=== PATIENT | male | born 1960 | race Caucasian/White ===

== ENCOUNTER 2017-07-22 10:39 | Outpatient (CLI) | payer OTHER ==
[~2017-07-22 10:39] MED LIST: ASA81 MG; CATAFLAM50 MG PO; CELEBREX200MG; CIALIS5 MG; LIPITOR20 MG
== END 2017-07-22 15:00 | disposition home or self-care (01) ==
LOC: MRI 10:39
DX: M54.2 Cervicalgia (principal)
CPT/HCPCS: 72141

== ENCOUNTER 2017-07-22 10:44 | Outpatient (CLI) | payer OTHER | END 2017-07-22 15:00 | disposition home or self-care (01) | LOC: RAD 10:44 | DX: M54.2 Cervicalgia (principal) ==

== ENCOUNTER 2017-10-15 10:06 | Outpatient (CLI) | payer OTHER | END 2017-10-15 10:13 | disposition home or self-care (01) | LOC: RAD 10:06 | DX: Z01.818 Encounter for other preprocedural examination (principal) ==

== ENCOUNTER 2018-08-25 10:27 | Outpatient (CLI) | payer OTHER ==
[~2018-08-25] VITALS: Ht 180.3 cm; Wt 83.9 kg
== END 2018-08-25 10:40 | disposition home or self-care (01) ==
LOC: OFIC 805 10:27
DX: H61.23 Impacted cerumen, bilateral (principal); H91.8X3 Other specified hearing loss, bilateral

== ENCOUNTER 2018-08-29 11:47 | Outpatient (CLI) | payer OTHER ==
[~2018-08-29] VITALS: Ht 152.4 cm; Wt 83.9 kg
== END 2018-08-29 12:05 | disposition home or self-care (01) ==
LOC: OFIC 805 11:47
DX: H91.8X3 Other specified hearing loss, bilateral (principal); H61.23 Impacted cerumen, bilateral; J38.2 Nodules of vocal cords

== ENCOUNTER 2018-10-14 15:01 | Outpatient (CLI) | payer OTHER | END 2018-10-14 15:11 | disposition home or self-care (01) | LOC: RAD 15:01 | DX: Z01.810 Encounter for preprocedural cardiovascular examination (principal) ==

== ENCOUNTER 2019-04-11 09:21 | Day surgery (SDC) | payer OTHER | END 2019-04-11 12:50 | disposition home or self-care (01) | LOC: AMB-ENDOS | DX: R19.4 Change in bowel habit (principal); K64.8 Other hemorrhoids; Z12.11 Encounter for screening for malignant neoplasm of colon ==

== ENCOUNTER 2019-06-19 08:38 | Outpatient (CLI) | payer OTHER | END 2019-06-19 15:34 | disposition home or self-care (01) | LOC: MRI 08:38 | DX: M54.2 Cervicalgia (principal) | CPT/HCPCS: 72141 ==

== ENCOUNTER 2020-04-09 08:00 | Outpatient (CLI) | payer OTHER | END 2020-04-09 15:00 | disposition home or self-care (01) | LOC: PPH VACUNA 08:00 | DX: Z23 Encounter for immunization (principal) ==

== ENCOUNTER 2021-05-01 15:27 | Outpatient (CLI) | payer OTHER | END 2021-05-01 15:29 | disposition home or self-care (01) | LOC: PPH VACUNA 15:27 | PROVIDERS: ATTEND Emergency Medicine Pediatric Emergency Medicine | DX: Z23 Encounter for immunization (principal) ==

== ENCOUNTER 2021-05-09 08:11 | Outpatient (CLI) | payer OTHER | END 2021-05-09 08:17 | disposition home or self-care (01) | LOC: SONOGRAMA 08:11 | DX: N28.89 Other specified disorders of kidney and ureter (principal); N40.1 Benign prostatic hyperplasia with lower urinary tract symptoms ==

== ENCOUNTER 2022-12-02 07:24 | Outpatient (CLI) | payer OTHER | END 2022-12-02 14:31 | disposition home or self-care (01) | LOC: LAB 07:24 | DX: R97.20 Elevated prostate specific antigen [PSA] (principal); Z20.2 Contact with and (suspected) exposure to infections with a predominantly sexual mode of transmission; R53.83 Other fatigue; R79.89 Other specified abnormal findings of blood chemistry; Z87.09 Personal history of other diseases of the respiratory system ==

== ENCOUNTER 2023-01-06 08:15 | Outpatient (CLI) | payer OTHER | END 2023-01-06 08:16 | disposition home or self-care (01) | LOC: LAB 08:15 | DX: N40.1 Benign prostatic hyperplasia with lower urinary tract symptoms (principal); N52.9 Male erectile dysfunction, unspecified; E53.9 Vitamin B deficiency, unspecified; E78.5 Hyperlipidemia, unspecified ==

== ENCOUNTER 2023-03-03 08:10 | Outpatient (CLI) | payer OTHER | END 2023-03-03 08:11 | disposition home or self-care (01) | LOC: LAB 08:10 | DX: N40.1 Benign prostatic hyperplasia with lower urinary tract symptoms (principal); N52.9 Male erectile dysfunction, unspecified; D64.9 Anemia, unspecified ==

== ENCOUNTER 2024-01-24 08:44 | Outpatient (CLI) | payer OTHER ==
[~2024-01-24 08:44] MED LIST changes: +DICLOFENAC POTA50 MG PO
== END 2024-01-24 08:56 | disposition home or self-care (01) ==
LOC: MRI 08:44
PROVIDERS: ATTEND Physical Medicine & Rehabilitation
DX: M25.521 Pain in right elbow (principal)
CPT/HCPCS: 73221

== ENCOUNTER 2024-05-04 08:10 | Day surgery (SDC) | payer OTHER ==
[2024-05-02 09:46] LABS: HEMATOCRIT 40.4 % (39.0-48.0); HEMOGLOBIN 13.7 g/dL (13-16.00); MEAN CELL VOLUME 90.6 fL (80.0-100.00); MEAN CORPUSCULAR HEMOGLOBIN 30.8 pg (27.00-32.0); PLATELET COUNT 259 K/uL (150-450); RED BLOOD COUNT 4.45 M/uL (4.00-6.00); RED CELL DISTRIBUTION WIDTH 13.2 % (11.5-14.5)
[2024-05-02 09:49] LABS: PH,URINE 6.5 (5.0-8.0); URINE APPEARANCE Clear; URINE BILIRRUBIN Negative (NEGATIVE); URINE BLOOD Negative; URINE COLOR Yellow; URINE GLUCOSE Negative (NEGATIVE); URINE KETONE 15 (NEGATIVE); URINE LEUKOCYTE Negative; URINE NITRATE Negative; URINE PROTEIN Negative (NEGATIVE); URINE UROBILINOGEN 0.2 E.U./dl
[2024-05-02 09:53] LABS: URINE WBC 1.8 uL (0.0-23.2)
[2024-05-02 10:01] LABS: URINE EPITHELIAL CELLS 0.1 uL (0.0-38.8); URINE RBC 1.6 uL (0.0-20.8)
[2024-05-02 10:10] LABS: INR 0.98; PARTIAL THROMBOPLASTIN TIME 27.5 SECONDS (22.0-34.0); PROTHROMBIN TIME 10.7 SECONDS (9.0-11.5)
[2024-05-02 10:28] LABS: ALBUMIN 3.6 gm/dL (3.4-5.0); BILIRUBIN TOTAL 0.74 mg/dL (0.3-1.2); CALCIUM 8.9 mg/dL (8.5-10.1); CREATININE SERUM 0.84 mg/dL (0.70-1.30); GFR 91.99; GLOBULINA 3.3 G/DL (2.4-3.5); POTASSIUM 4.74 mEq/L (3.5-5.1); TOTAL PROTEIN 6.9 gm/dL (6.4-8.2)
[2024-05-04] MEDS ORDERED: MORPHINE SULFATE 4 MG/ML VIAL IV ONE ×2 (13:10→14:55)
== END 2024-05-04 16:15 | disposition home or self-care (01) ==
LOC: CIR.AMB 08:10
PROVIDERS: ATTEND Orthopaedic Surgery
DX: M24.821 Other specific joint derangements of right elbow, not elsewhere classified (principal); M67.931 Unspecified disorder of synovium and tendon, right forearm; M17.11 Unilateral primary osteoarthritis, right knee

== ENCOUNTER → 2025-02-09 06:36 | Outpatient (CLI) | payer OTHER ==
[2025-02-09 07:18] LABS: BASO % 1.2 % (0.1-1.2); EOS # 0.07 (0.04-0.54); EOS % 1.6 % (0.7-7.0); LYMPH # 1.95 (1.18-3.74); LYMPH % 45.5 % (19.3-53.1); MEAN PLATELET VOLUME 10.00 fl (9.4-12.4); MONO # 0.39 (0.24-0.82); MONO % 9.1 % (4.7-12.5); NEUT # 1.82 (1.56-6.13); NEUT % 42.4 % (34.0-71.1); RED CELL DISTRIBUTION WIDTH 12.3 % (11.6-14.4)
[2025-02-09 07:21] LABS: URINE APPEARANCE Clear; URINE BILIRRUBIN Negative (NEGATIVE); URINE BLOOD Negative; URINE COLOR Yellow; URINE GLUCOSE Negative (NEGATIVE); URINE KETONE Negative (NEGATIVE); URINE LEUKOCYTE Negative; URINE NITRATE Negative; URINE PROTEIN Negative (NEGATIVE); URINE UROBILINOGEN 0.2 E.U./dl
[2025-02-09 07:25] LABS: URINE WBC 1.8 uL (0.0-23.2)
[2025-02-09 07:28] LABS: URINE BACTERIA 3.5 uL (0.0-1933); URINE CAST 0.14 uL (0.0-1.40); URINE EPITHELIAL CELLS 0.3 uL (0.0-38.8); URINE RBC 1.4 uL (0.0-20.8)
[2025-02-09 08:23] LABS: ALT/SGPT 21.0 U/L (12-78); AST/SGOT 13.0 U/L (15-37); BILIRUBIN TOTAL 0.54 mg/dL (0.3-1.2); BUN CREA RATIO 20.0 (7.0-25.0); CHOL HDL RATIO 3.4 (0-5.0); CREATININE SERUM 0.88 mg/dL (0.70-1.30); GFR 86.91; GLOBULINA 3.0 G/DL (2.4-3.5); GLUCOSE FASTING 89.0 mg/dL (65-100); HDL 55.0 mg/dl (40-60); LDL 110.0 mg/dl (0-130); OSMOLALITY SERUM 288.0 MOSM/KG (275-295); T4 FREE 1.04 NG/ML (0.76-1.46); TSH 1.12 uIU/mL (0.358-3.74); VLDL 23.0 (0-39)
[2025-02-09 08:33] LABS: PROSTATIC SPECIFIC ANTIGEN 5.02 NG/ML (0.010-4.00)
[2025-02-09 11:16] LABS: ob NEGATIVE (NEGATIVE)
== END | disposition home or self-care (01) ==
LOC: LAB 02-08 17:57
PROVIDERS: ATTEND Internal Medicine
DX: D64.9 Anemia, unspecified (principal); I10 Essential (primary) hypertension; E11.9 Type 2 diabetes mellitus without complications; E03.9 Hypothyroidism, unspecified; E78.2 Mixed hyperlipidemia; E55.9 Vitamin D deficiency, unspecified; N39.0 Urinary tract infection, site not specified; Z12.11 Encounter for screening for malignant neoplasm of colon; N40.0 Benign prostatic hyperplasia without lower urinary tract symptoms

== ENCOUNTER → 2025-05-18 08:34 | Outpatient (CLI) | payer OTHER | END | disposition home or self-care (01) | LOC: MRI 08:34 | DX: M25.512 Pain in left shoulder (principal) | CPT/HCPCS: 73221 ==

== ENCOUNTER → 2025-07-16 08:50 | Outpatient (CLI) | payer OTHER | END | disposition home or self-care (01) | LOC: MRI 08:50 | PROVIDERS: ATTEND Physical Medicine & Rehabilitation | DX: M79.602 Pain in left arm (principal); M75.80 Other shoulder lesions, unspecified shoulder | CPT/HCPCS: 73221 ==